=== PATIENT | female | born 1985 | race Two or more races ===

== ENCOUNTER 2018-06-22 09:55 | Emergency (ER) | payer OTHER ==
[~2018-06-22] VITALS: Ht 162.6 cm; Wt 77.1 kg
--- NOTE | 2018-06-22 10:28 | NUR ---
Patient discharged to home in stable conditon. Written and verbal after care instructions given. Patient verbalizes understanding of instructions.
== END 2018-06-22 10:29 | disposition home or self-care (01) ==
LOC: ER 09:57
DX: H66.92 Otitis media, unspecified, left ear (principal)
CPT/HCPCS: A4663

== ENCOUNTER 2018-06-29 18:08 | Emergency (ER) | payer OTHER ==
[~2018-06-29] VITALS: Ht 162.6 cm; Wt 77.1 kg
--- NOTE | 2018-06-29 19:44 | NUR ---
Patient discharged to home in stable conditon. Written and verbal after care instructions given. Patient verbalizes understanding of instructions.
== END 2018-06-29 19:46 | disposition home or self-care (01) ==
LOC: ER 18:11
DX: M54.5 Low back pain (principal)
CPT/HCPCS: A4663

== ENCOUNTER 2018-09-05 07:02 | Emergency (ER) | payer OTHER ==
[~2018-09-05] VITALS: Ht 162.6 cm; Wt 68.0 kg
[2018-09-05 07:22] LABS: *URINE HCG, QUAL NEGATIVE (NEGATIVE)
[2018-09-05] MEDS: ACETAMINOPHEN 325 MG TABLET PO ONE (07:33)
[2018-09-05] MEDS ORDERED: ACETAMINOPHEN 325 MG TABLET ONE (07:38)
--- NOTE | 2018-09-05 07:44 | NUR ---
PATIENT WAS SEEN BY . 12 LEAD EKG DONE. TYLENOL GIVEN FOR PAIN. DC, RX AND FOLLOW UP INSTRUCTIONS GIVEN AND EXPLAINED TO PATIENT WHO STATES SHE UNDERSTANDS ALL INSTRUCTIONS.
== END 2018-09-05 07:46 | disposition home or self-care (01) ==
LOC: ER 07:04
DX: R07.89 Other chest pain (principal)
CPT/HCPCS: 71045; 84703; 93005; A4663

== ENCOUNTER 2018-09-06 17:51 | Emergency (ER) | payer OTHER ==
[~2018-09-06] VITALS: Ht 162.6 cm; Wt 71.7 kg
[2018-09-06 18:29] LABS: *BILIRUBIN,URIN 2+ (NEGATIVE); *BLOOD, URINE 1+ (NEGATIVE); *CLARITY,URINE CLOUDY (CLEAR); *COLOR,URINE DARK YELLOW (YELLOW); *KETONES,URINE TRACE (NEGATIVE); LEUKOCYTE ESTERASE ,URINE 3+ (NEGATIVE); NITRITE, URINE NEGATIVE (NEGATIVE); PH,URINE 6.5 (5.0-8.0); UGLUCOSE NEGATIVE (NEGATIVE)
[2018-09-06 18:30] LABS: *URINE HCG, QUAL NEGATIVE (NEGATIVE)
[2018-09-06 18:36] LABS: BACTERIA,URINE MANY /HPF (NONE SEEN); MUCUS,URINE MANY /LPF (0-FEW); SQUAMOUS EPITHELIAL CELL,UR MANY /HPF (NONE SEEN); WBC,URINE TNTC /HPF (0-3)
--- NOTE | 2018-09-06 19:17 | NUR ---
pt was evaluated by dr martinez. pt was d/c to home. d/c instructions given to the pt.
[2018-09-06 19:18] VITALS: BP 129/77
== END 2018-09-06 19:19 | disposition home or self-care (01) ==
LOC: ER 17:53
DX: N30.90 Cystitis, unspecified without hematuria (principal)
CPT/HCPCS: 84703

== ENCOUNTER 2018-11-30 19:04 | Emergency (ER) | payer OTHER ==
[~2018-11-30] VITALS: Ht 162.6 cm; Wt 74.8 kg
[2018-11-30 19:33] LABS: *BILIRUBIN,URIN NEGATIVE (NEGATIVE); *CLARITY,URINE SLIGHTLY CLOUDY (CLEAR); *COLOR,URINE YELLOW (YELLOW); *KETONES,URINE NEGATIVE (NEGATIVE); *UROBILINOGEN,URINE 0.2 E.U./dl (NORMAL); LEUKOCYTE ESTERASE ,URINE 3+ (NEGATIVE); NITRITE, URINE NEGATIVE (NEGATIVE); PH,URINE 6.5 (5.0-8.0); UGLUCOSE NEGATIVE (NEGATIVE)
[2018-11-30 19:34] LABS: *URINE HCG, QUAL NEGATIVE (NEGATIVE)
[2018-11-30 19:37] LABS: *BLOOD, URINE TRACE (NEGATIVE)
[2018-11-30 19:39] LABS: BACTERIA,URINE FEW /HPF (NONE SEEN); SQUAMOUS EPITHELIAL CELL,UR MODERATE /HPF (NONE SEEN); WBC,URINE 50-80 /HPF (0-3)
[2018-11-30] MEDS ORDERED: NITROFURANTOIN/NITROFURAN MAC 100 MG CAPSULE PO ONE (19:45)
[2018-11-30] MEDS ORDERED: PHENAZOPYRIDINE HCL 100 MG TABLET PO ONE (19:45)
[2018-11-30] MEDS ORDERED: NITROFURANTOIN/NITROFURAN MAC 100 MG CAPSULE ONE (19:47)
[2018-11-30] MEDS ORDERED: PHENAZOPYRIDINE HCL 100 MG TABLET ONE (19:47)
--- NOTE | 2018-11-30 19:48 | NUR ---
Patient discharged to home in stable conditon. Written and verbal after care instructions given. Patient verbalizes understanding of instructions. WALKED OUT OF ER WITH NO DISTRESS NOTED
[2018-11-30 19:50] VITALS: BP 128/88
== END 2018-11-30 19:50 | disposition home or self-care (01) ==
LOC: ER 19:08
DX: N30.90 Cystitis, unspecified without hematuria (principal)
CPT/HCPCS: 84703; 87077; 87086; A4663

== ENCOUNTER 2019-05-30 19:24 | Emergency (ER) | payer OTHER ==
[~2019-05-30] VITALS: Ht 162.6 cm; Wt 70.8 kg
[2019-05-30 20:02] LABS: *URINE HCG, QUAL NEGATIVE (NEGATIVE)
[2019-05-30 20:03] LABS: *BILIRUBIN,URIN NEGATIVE (NEGATIVE); *COLOR,URINE YELLOW (YELLOW); *KETONES,URINE NEGATIVE (NEGATIVE); *UROBILINOGEN,URINE 0.2 E.U./dl (NORMAL); LEUKOCYTE ESTERASE ,URINE 1+ (NEGATIVE); NITRITE, URINE NEGATIVE (NEGATIVE); UGLUCOSE NEGATIVE (NEGATIVE)
[2019-05-30 20:08] LABS: *BLOOD, URINE TRACE (NEGATIVE); *CLARITY,URINE CLOUDY (CLEAR)
[2019-05-30 20:10] LABS: BACTERIA,URINE MODERATE /HPF (NONE SEEN); MUCUS,URINE MODERATE /LPF (0-FEW); SQUAMOUS EPITHELIAL CELL,UR MANY /HPF (NONE SEEN); WBC,URINE 20-50 /HPF (0-3)
[2019-05-30 20:11] LABS: YEAST,URINE FEW /HPF (NONE SEEN)
[2019-05-30] MEDS ORDERED: PHENAZOPYRIDINE HCL 100 MG TABLET ONE (21:23)
[2019-05-30] MEDS ORDERED: NITROFURANTOIN/NITROFURAN MAC 100 MG CAPSULE ONE (21:23)
--- NOTE | 2019-05-30 21:27 | NUR ---
Patient discharged to home in stable conditon. Written and verbal after care instructions given. Patient verbalizes understanding of instructions. Walked out of ER with no distress noted.
[2019-05-30 21:28] VITALS: BP 125/74
[2019-05-30] MEDS ORDERED: NITROFURANTOIN/NITROFURAN MAC 100 MG CAPSULE PO ONE (21:30)
[2019-05-30] MEDS ORDERED: PHENAZOPYRIDINE HCL 100 MG TABLET PO ONE (21:30)
== END 2019-05-30 21:29 | disposition home or self-care (01) ==
LOC: ER 19:26
DX: N30.91 Cystitis, unspecified with hematuria (principal); M54.5 Low back pain; F41.9 Anxiety disorder, unspecified
CPT/HCPCS: 84703; 87086; A4663